=== PATIENT | female | born 1990 | race Caucasian/White ===

== ENCOUNTER 2017-09-10 00:24 | Inpatient (IN) | payer BC, OTHER ==
--- NOTE | 2017-09-10 01:17 | HP ---
General Information - General Information Maternal Age: 27 Grav: 2 Para: 1 SAB: 0 IEA: 0 Estimated Due Date: 09/15/17 Determined By: Early Ultrasound Gestational Age in Weeks and Days: 39 Weeks and 2 Days Maternal Blood Type and Rh: A Positive - Results this Serology/RPR Result: Non-Reactive Rubella Result: Immune HBsAg Result: Negative HIV Result: Negative GBS Culture Result: Negative Past Medical History Delivery History: Hx Uncomplicated Vaginal Delivery Pertinent Past Medical History: Non-Contributory Pertinent Past Surgical History: None Pertinent Family History: See Records Family History Comment: CVD, HTN - Antepartal Records Antepartal Records: Reviewed, Complicated by: - BMI 33, echogenic foci , tobacco use, R hydronephrosis (resolved 07/28/17) Review of Systems Constitutional: Uncomfortable CV Complaint: No Respiratory: Shortness of Breath: No Gastrointestinal: No Nausea/Vomiting Genitourinary: No Bleeding, No Leaking Fluid Musculoskeletal: Back Pain, Contractions Neurological: No Headache, No Visual Changes Movement: Normal Exam Allergies/Adverse Reactions: Allergies No Known Allergies Allergy (Verified 09/10/17 01:03) T:97.9, P:86, BP: 133/78, O2:98%, R:16 - Measurements Height: 5 ft 6 in Weight: 228 lb Weight in lbs: [id number] Body Mass Index (BMI): 36.8 Pre- Weight: 200 lb Weight Gained This : 28 lbs and 0 ozs - Exam Abdomen: No Upper Quadrant Pain Breast: Breast Exam Deferred CVA: No CVA Tenderness Extremities: No Edema Heart: Normal Rhythm/Heart Sounds HEENT: No Significant Findings Lungs: Clear Bilaterally Rectal: Rectal Exam Deferred Targeted Exam Findings Cervical Exam: 4cm Effacement: 80% Station: -1 Presenting Part: Vertex Membrane Status: Intact EFM Findings - External Monitor Findings Baseline Heart Rate: 135 External Monitor Findings: Accelerations Present, No Pattern of Variable or Late Decelerations, Variability Moderate, Baseline Stable Contractions: Regular, Moderate, 45-90 Seconds Contraction Frequency: 2-4 Assessment/Plan - Reason for Visit Reason for Visit: contractions - Obstetrical Risk Factors Obstetrical Risk Factors: Tobacco Use - Plan Plan: Active Labor
[2017-09-10 02:03] LABS: ABS Basophils 0.1 10^3/ul (0-0.2); ABS Eosinophils 0 10^3/ul (0-0.6); ABS Lymphocytes 2.4 10^3/ul (1.0-4.8); ABS Monocytes 0.8 10^3/ul (0-0.8); ABS Neutrophils 12.5 10^3/ul (1.5-7.7); ABS Nucleated RBC 0 10^3/ul; Eosinophil % 0.3 % (0-6); Hematocrit 36 % (35-47); Hemoglobin 12.3 g/dl (12.0-16.0); Lymphocyte % 15.2 % (25-47); Mean Corpuscular HGB Conc 34 g/dl (31-36); Mean Corpuscular Hemoglobin 30 pg (27-31); Mean Corpuscular Volume 88 fL (80-97); Mean Platelet Volume 10.2 um3 (7.4-10.4); Nucleated Red Blood Cells % 0.1; Platelet Count 200 10^3/ul (150-450); Red Blood Count 4.11 10^6/ul (4.00-5.40); Red Cell Distribution Width 14 % (10.5-15); White Blood Count 15.9 10^3/ul (3.5-10.8)
[2017-09-10] MEDS ORDERED: OBEPIDURAL* 250 ML EPIDURAL ONE (02:18)
[2017-09-10] MEDS ORDERED: Famotidine TAB* 20 MG PO PRN (02:32)
[2017-09-10] MEDS ORDERED: Sodium Citrate/Citric Acid* 15 ML UDC PO PRN (02:32)
[2017-09-10] MEDS ORDERED: Phenylephrine IV* 40 MCG/ML 10 ML SYRINGE IV PUSH PRN ×2 (02:32)
[2017-09-10] MEDS ORDERED: EPHEDrine (Pressors)* 50 MG/ML VIAL IV PUSH PRN ×2 (02:32)
[2017-09-10] MEDS ORDERED: OBEPIDURAL* 250 ML EPIDURAL SCH (03:00)
[2017-09-10] MEDS ORDERED: ceFOXitin 2 GM IVPREMIX* 2 GM/50 ML BAG ONE (04:52)
[2017-09-10] MEDS ORDERED: OXYTOCIN* 10 UNITS/ML 1 ML VIAL ONE ×2 (05:18→05:33)
[2017-09-10] MEDS ORDERED: Lidocaine 2% EPI 1:200000 MPF*10-20 ML VIAL ONE (05:18)
[2017-09-10] MEDS ORDERED: Phenylephrine IV* 40 MCG/ML 10 ML SYRINGE ONE (05:19)
[2017-09-10] MEDS ORDERED: Morphine PF AMP (0.5MG/ML)* 5 MG/10 ML AMP ONE (05:20)
[2017-09-10] MEDS ORDERED: Ondansetron INJ* 2 MG/ML VIAL IV PRN ×2 (05:24)
[2017-09-10] MEDS ORDERED: oxyCODONE TAB* 5 MG TAB PO PRN (05:24)
[2017-09-10] MEDS ORDERED: Nalbuphine* 10 MG/ML 1 ML VIAL IV PRN (05:24)
[2017-09-10] MEDS ORDERED: HYDROmorphone INJ* 0.5 MG/0.5 ML SYRINGE IV PRN (05:24)
[2017-09-10] MEDS ORDERED: Acetaminophen TAB* 325 MG PO PRN (05:24)
[2017-09-10] MEDS ORDERED: Naloxone* 0.4 MG/ML 1 ML VIAL IV PRN ×2 (05:24)
[2017-09-10] MEDS ORDERED: Ketorolac INJ* 30 MG/ML 1 ML VIAL IV PRN (05:24)
[2017-09-10] MEDS ORDERED: oxyCODONE/Acetamin 5/325 MG* TAB PO PRN ×3 (05:24→21:25)
[2017-09-10] MEDS ORDERED: diPHENhydraMINE IV* 50 MG/ML 1 ml VIAL (BENADRYL) IV PRN ×2 (05:24)
[2017-09-10] MEDS ORDERED: fentaNYL* 50 MCG/ML 2 ML VIAL (100 MCG VIAL) IV PRN (05:24)
[2017-09-10] MEDS ORDERED: DiMENhydriNATE IV* 50 MG/ML VIAL IV PUSH PRN (05:24)
[2017-09-10] MEDS ORDERED: Ondansetron ODT TAB* 4 MG ONE (05:34)
[2017-09-10] MEDS ORDERED: Glycerin ADULT SUPP PR PRN (05:54)
[2017-09-10] MEDS ORDERED: Witch Hazel PAD* JAR TOPICAL PRN (05:54)
[2017-09-10] MEDS ORDERED: Dibucaine 1% 28.35 GM TUBE PR PRN (05:54)
--- NOTE | 2017-09-10 06:00 | PN ---
Progress Note - Progress Note Date of Service: 09/10/17 - 2:12 SOAP: Subjective: [Pt reports increased pain and requests epidural. +FM, -LOF, + bloody show. Objective: [Cervix: /-1] Assessment: [27 y.o. , full term in Active labor] Plan: [1) Initiate IV and administer bolud of fluids 2) Dr Kirk called for epidural 3) Reviewed mgmt options for pain control. 4) Questions answered to pt satisfaction]
--- NOTE | 2017-09-10 06:17 | PN ---
Progress Note - Progress Note Date of Service: 09/10/17 - 4:00 SOAP: Subjective: [Pt comfortable with epidural. Reports possible SROM, and continued bloody show.] Objective: [BP: 116/99 Cervix: AL/90/-1 FHT: baseline 135bpm, +accels, reoccuring late variable decels into 60s with gradual return to baseline. ] Assessment: [27 y.o. cat 2 tracing Plan: [1) resuscitation with O2 initiated, bolus of fluids, and position changes with improvement of heart rate in hands knees position. 2) scalp electrode placed 3) Dr. Ferguson called at 3:43, no answer, Dr. Rosales called, report given and request for consult and evaluation. 4) Pt counseled on possibility of a C/S]
[2017-09-10] MEDS: Ibuprofen TAB* 600 MG PO PRN ×2 (09:06→16:35)
--- NOTE | 2017-09-10 12:25 | OP ---
DATE OF OPERATION: 09/10/17 - ROOM #105 DATE OF : 89 SURGEON: Olimpia Rosales MD TELEPHONE SERVICE REPRESENTATIVE: Bonnie Mistry, nurse-warehouse associate. ANESTHESIOLOGIST: Dr. Kirk. ANESTHESIA: Epidural. RIBBON HANKING MACHINE OPERATOR: Dr. Murphy. PRE-OP DIAGNOSIS: Category II heart tracing remote from delivery, intrauterine , 39+ weeks. POST-OP DIAGNOSIS: Category II heart tracing remote from delivery, intrauterine , 39+ weeks, delivered. OPERATIVE PROCEDURE: Primary low-transverse section. IV FLUIDS: 3500 cc of crystalloid. URINE OUTPUT: 400 cc of concentrated yellow urine. ESTIMATED BLOOD LOSS: 600 cc. FINDINGS: Revealed a vertex male infant, direct OP. No nuchal cord. No meconium. Apgars were 8 at 1 minute and 9 at 5 minutes. Normally palpated tubes and ovaries. Uterine cavity normally palpated without evidence of retained membranes or placental tissue. Placenta appeared normal, was manually extracted posterior implantation, and three- vessel cord. COMPLICATIONS: None apparent. DISPOSITION: Stable to recovery room. DESCRIPTION OF PROCEDURE: The patient was placed in dorsal lithotomy position after undergoing dosing of epidural, prep of abdomen and drape of abdomen. The patient was identified with the universal protocol for correct procedure, patient, and position. Incision was made two fingerbreadths above the pubic symphysis. This was carried down through the fascia. Fascia was scored in the midline with the scalpel and extended laterally and superiorly using curved Snyder scissors. Fascia was with blunt and sharp dissection superiorly and inferiorly and the peritoneum was then entered bluntly. Peritoneal incision was extended bluntly. The bladder blade was inserted. Lower uterine segment was identified and tented with Allis. Incision was made with scalpel and this was carried down through to membranes bluntly and the incision was extended bluntly laterally and superiorly. The infant was found to be wedged direct OP. Head was delivered, anterior- posterior shoulder delivered, baby was vigorous and crying upon delivery. The cord was allowed to pulse for 60 seconds and then clamped and then cut. The was handed off to awaiting fire systems inspector. Appropriate cord blood was obtained. Placenta was then manually extracted, noted to be intact, and had a posterior insert. The uterine was then explored and noted to be free of any membranes or placental tissue. The incision was first clamped with broad Allis and the incision was reapproximated with first layer running locked x2, second layer running imbricated x1. The ovaries were palpated. Adnexa were palpated. No masses were appreciated. Copious lavage was performed. Prior to closure of the peritoneum, all sponge, instrument, and blade counts were correct. Peritoneum was reapproximated using 3-0 Vicryl x2 in a running fashion. Prefascial area was lavaged, hemostasis was assured, and the fascia itself was reapproximated using 0 Vicryl x2. Subcu was lavaged. Hemostasis was assured with Bovie coagulation and the subcutaneous fat layer was reapproximated using 0 Vicryl in an interrupted fashion. The skin was then reapproximated using 4-0 Monocryl in a subcuticular fashion. Mastisol and Steris were applied. All sponge, needle, instrument, and blade counts were correct throughout the case. The patient tolerated the procedure well and went to recovery room in stable condition. [id number]/[facility] #: [id number] [place]
[2017-09-10] MEDS ORDERED: Ketorolac INJ* 30 MG/ML 1 ML VIAL IV PUSH PRN (15:41)
[2017-09-10] MEDS: Simethicone TAB* 80 MG TAB.CHEW PO SCH ×2 (18:36→22:05)
[2017-09-10] MEDS ORDERED: Zolpidem TAB* 5 MG PO PRN (21:25)
[2017-09-10] MEDS: Docusate CAP* 100 MG PO SCH (22:05)
[2017-09-11] MEDS: Ibuprofen TAB* 600 MG PO PRN ×3 (05:47→19:34)
[2017-09-11 07:00] LABS: ABS Basophils 0.1 10^3/ul (0-0.2); ABS Eosinophils 0.1 10^3/ul (0-0.6); ABS Lymphocytes 2.2 10^3/ul (1.0-4.8); ABS Neutrophils 11.4 10^3/ul (1.5-7.7); ABS Nucleated RBC 0 10^3/ul; Eosinophil % 0.5 % (0-6); Hematocrit 30 % (35-47); Hemoglobin 10.3 g/dl (12.0-16.0); Lymphocyte % 14.7 % (25-47); Mean Corpuscular HGB Conc 34 g/dl (31-36); Mean Corpuscular Hemoglobin 30 pg (27-31); Mean Corpuscular Volume 87 fL (80-97); Mean Platelet Volume 9.5 um3 (7.4-10.4); Nucleated Red Blood Cells % 0; Platelet Count 163 10^3/ul (150-450); Red Blood Count 3.46 10^6/ul (4.00-5.40); Red Cell Distribution Width 14 % (10.5-15); White Blood Count 14.7 10^3/ul (3.5-10.8)
[2017-09-11] MEDS ORDERED: Ferrous Gluconate TAB* 324 MG TAB PO SCH (09:00)
[2017-09-11] MEDS: Simethicone TAB* 80 MG TAB.CHEW PO SCH ×3 (09:32→20:34)
[2017-09-11] MEDS: Acetaminophen TAB* 325 MG PO PRN ×3 (09:32→19:34)
[2017-09-11] MEDS: Docusate CAP* 100 MG PO SCH ×3 (09:32→20:34)
[2017-09-12] MEDS: Acetaminophen TAB* 325 MG PO PRN ×3 (00:18→09:25)
[2017-09-12] MEDS: Ibuprofen TAB* 600 MG PO PRN (05:34)
[2017-09-12] MEDS: Docusate CAP* 100 MG PO SCH (09:25)
[2017-09-12] MEDS: Simethicone TAB* 80 MG TAB.CHEW PO SCH (09:25)
[2017-09-12 11:11] VITALS: BP 115/65
== END 2017-09-12 12:30 | disposition home or self-care (01) | DRG 540 ==
LOC: MCHOBOUT 00:24 → MCHOB 01:01
PROVIDERS: ADMIT Midwife; ATTEND Obstetrics & Gynecology
PROC: 10907ZC Drainage of Amniotic Fluid, Therapeutic from Products of Conception, Via Natural or Artificial Opening (ICD-10-PCS; 2017-09-10)
PROC: 10D00Z1 Extraction of Products of Conception, Low, Open Approach (ICD-10-PCS; principal; 2017-09-10 04:43)
DX: O76 Abnormality in fetal heart rate and rhythm complicating labor and delivery (principal); O99.334 Smoking (tobacco) complicating childbirth; F17.210 Nicotine dependence, cigarettes, uncomplicated; O99.214 Obesity complicating childbirth; E66.9 Obesity, unspecified; Z68.33 Body mass index [BMI] 33.0-33.9, adult; O32.8XX0 Maternal care for other malpresentation of fetus, not applicable or unspecified; Z3A.39 39 weeks gestation of pregnancy; Z37.0 Single live birth
CPT/HCPCS: 36415; 85025; 86850; 86900; 86901; A9270-GY; J0694; J1885; J2405; J2590

== ENCOUNTER 2018-03-09 17:44 | Emergency (ER) | payer OTHER ==
[2018-03-09 18:07] VITALS: BP 131/81
--- NOTE | 2018-03-09 19:19 | UC ---
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, family members with uri/viral illness no one dx with flu---denies fever - History of Current Complaint Chief Complaint: UCGeneralIllness Stated Complaint: SORE THROAT Time Seen by Provider: 03/09/18 19:02 Hx Obtained From: Patient Hx Last Menstrual Period: [id number] ?: No Onset/Duration: Sudden Onset, Lasting Days - 2, Still Present Pain Intensity: 7 Pain Scale Used: 0-10 Numeric Cough: None Associated Signs & Symptoms: Positive: Negative - Allergies/Home Medications Allergies/Adverse Reactions: Allergies Allergy/AdvReac Type Severity Reaction Status Date / Time No Known Allergies Allergy Verified 03/09/18 18:07 Home Medications: Home Medications Desogestrel-Ethinyl Estradiol [Velivet 28 Day Tablet] 1 tab PO DAILY 03/09/18 [ History Confirmed 03/09/18] PMH/Surg Hx/FS Hx/Imm Hx Previously Healthy: Yes - Surgical History Surgical History: None - Family History Known Family History: Positive: None - Social History Occupation: Employed Full-time Lives: With Family Alcohol Use: None Substance Use Type: None Smoking Status (MU): Current Some Day Smoker Type: Cigarettes Amount Used/How Often: 10 cig./day Have You Smoked in the Last Year: Yes Cessation Counseling: Counseled 3+Min - 10 Min - Immunization History Most Recent Influenza Vaccination: 12/2104 Most Recent Tetanus Shot: unknown Most Recent Pneumonia Vaccination: never Review of Systems All Other Systems Reviewed And Are Negative: Yes Constitutional: Positive: Chills, Fatigue Skin: Positive: Negative Eyes: Positive: Negative ENT: Positive: Sore Throat, Sinus Congestion Respiratory: Positive: Cough Cardiovascular: Positive: Negative Gastrointestinal: Positive: Negative Genitourinary: Positive: Negative Motor: Positive: Negative Neurovascular: Positive: Negative Musculoskeletal: Positive: Myalgia Neurological: Positive: Negative Psychological: Positive: Negative Is Patient Immunocompromised?: No Physical Exam Triage Information Reviewed: Yes Appearance: Well-Nourished, Ill-Appearing - mild, Pain Distress Vital Signs: Initial Vital Signs Temp 98.5 F 03/09/18 18:02 Pulse 92 03/09/18 18:02 Resp 19 03/09/18 18:02 BP 131/81 03/09/18 18:02 Pulse Ox 99 03/09/18 18:02 Vital Signs Reviewed: Yes Eye Exam: Normal Eyes: Positive: Conjunctiva Clear ENT Exam: Normal ENT: Positive: Normal ENT inspection, Hearing grossly normal, Pharynx normal, TMs normal, Uvula midline. Negative: Nasal congestion, Tonsillar swelling, Trismus, Muffled voice, Hoarse voice, Dental tenderness, Sinus tenderness Dental Exam: Normal Neck exam: Normal Neck: Positive: Supple, Nontender, No Lymphadenopathy Respiratory Exam: Normal Respiratory: Positive: Chest non-tender, Lungs clear, Normal breath sounds, No respiratory distress, No accessory muscle use Cardiovascular Exam: Normal Cardiovascular: Positive: RRR, No Murmur, Pulses Normal, Brisk Capillary Refill Musculoskeletal Exam: Normal Musculoskeletal: Positive: Strength Intact, ROM Intact, No Edema Neurological Exam: Normal Neurological: Positive: Alert, Muscle Tone Normal Psychological Exam: Normal Skin Exam: Normal Diagnostics - Laboratory Diagnostic Studies Completed/Ordered: RST and Influenmza A/B (-) Throat Pain/Nasal Course/Dx - Course Assessment/Plan: rest increase fluids, tylenol, ibuprofen follow with pcp prn - Differential Dx/Diagnosis Provider Diagnosis: Viral illness Discharge - Sign-Out/Discharge Documenting (check all that apply): Patient Departure All imaging exams completed and their final reports reviewed: No Studies - Discharge Plan Condition: Stable Disposition: HOME Patient Education Materials: Upper Respiratory Infection (DC), Viral Syndrome ( ED) Forms: *Work Release Referrals: [facility] [Outside] - If Needed - Billing Disposition and Condition Condition: STABLE Disposition: Home
== END 2018-03-09 19:53 | disposition home or self-care (01) ==
LOC: UCEAST 17:44
DX: B34.9 Viral infection, unspecified (principal); R53.83 Other fatigue; R11.0 Nausea; R19.7 Diarrhea, unspecified; J02.9 Acute pharyngitis, unspecified; F17.210 Nicotine dependence, cigarettes, uncomplicated
CPT/HCPCS: 87651; 99212; G0463

== ENCOUNTER 2018-08-07 19:57 | Emergency (ER) | payer SELFPAY ==
[2018-08-07 20:07] VITALS: BP 141/71
--- NOTE | 2018-08-07 20:20 | UC ---
Throat Pain/Nasal Hu HPI - HPI Summary HPI Summary: awoke up this morning this am with sore throat and body aches---got yesterday - History of Current Complaint Chief Complaint: UCRespiratory Stated Complaint: SORE THROAT Time Seen by Provider: 08/07/18 19:58 Hx Obtained From: Patient Hx Last Menstrual Period: 2.5 WEEKS AGO ?: No Onset/Duration: Sudden Onset, Lasting Days - 1 Pain Intensity: 7 Pain Scale Used: 0-10 Numeric Cough: None - Allergies/Home Medications Allergies/Adverse Reactions: Allergies Allergy/AdvReac Type Severity Reaction Status Date / Time No Known Allergies Allergy Verified 08/07/18 20:07 Home Medications: Home Medications Dextromethorphan/Benzocaine [Cepacol Sorethroat-Cough Ab] 1 each PO PRN [History] PMH/Surg Hx/FS Hx/Imm Hx Previously Healthy: Yes - Surgical History Surgical History: None - Family History Known Family History: Positive: None - Social History Occupation: Employed Full-time Lives: With Family Alcohol Use: Occasionally Substance Use Type: None Smoking Status (MU): Current Every Day Smoker Type: Cigarettes Amount Used/How Often: <1/2 PPD Have You Smoked in the Last Year: Yes - Immunization History Most Recent Influenza Vaccination: 12/2104 Most Recent Tetanus Shot: unknown Most Recent Pneumonia Vaccination: never Review of Systems All Other Systems Reviewed And Are Negative: Yes Constitutional: Positive: Chills, Fatigue Skin: Positive: Negative Eyes: Positive: Negative ENT: Positive: Sore Throat, Ear Ache Respiratory: Positive: Negative Cardiovascular: Positive: Negative Gastrointestinal: Positive: Negative Genitourinary: Positive: Negative Motor: Positive: Negative Neurovascular: Positive: Negative Musculoskeletal: Positive: Negative Neurological: Positive: Negative Psychological: Positive: Negative Is Patient Immunocompromised?: No Physical Exam Triage Information Reviewed: Yes Appearance: Well-Appearing, No Pain Distress, Well-Nourished Vital Signs: Initial Vital Signs Temp 97.7 F 08/07/18 20:04 Pulse 97 08/07/18 20:04 Resp 16 08/07/18 20:04 BP 141/71 08/07/18 20:04 Pulse Ox 99 08/07/18 20:04 Vital Signs Reviewed: Yes Eye Exam: Normal Eyes: Positive: Conjunctiva Clear ENT Exam: Normal ENT: Positive: Normal ENT inspection, Hearing grossly normal, Pharynx normal, TMs normal, Uvula midline. Negative: Nasal congestion, Tonsillar swelling, Tonsillar exudate, Trismus, Muffled voice, Hoarse voice, Dental tenderness, Sinus tenderness Neck exam: Normal Neck: Positive: Supple, Nontender, No Lymphadenopathy Respiratory Exam: Normal Respiratory: Positive: Chest non-tender, Lungs clear, Normal breath sounds, No respiratory distress, No accessory muscle use Cardiovascular Exam: Normal Cardiovascular: Positive: RRR, No Murmur, Pulses Normal, Brisk Capillary Refill Musculoskeletal Exam: Normal Musculoskeletal: Positive: Strength Intact, ROM Intact, No Edema Neurological Exam: Normal Neurological: Positive: Alert, Muscle Tone Normal Psychological Exam: Normal Skin Exam: Normal Diagnostics - Laboratory Lab Results: rst (-) Throat Pain/Nasal Course/Dx - Course Course Of Treatment: increase fluids, tylenol, ibuprofen OTC treatments for comfort follow with [facility] if needed - Differential Dx/Diagnosis Provider Diagnosis: Pharyngitis with viral syndrome, Hypertension, Nicotine abuse Discharge - Sign-Out/Discharge Documenting (check all that apply): Patient Departure All imaging exams completed and their final reports reviewed: No Studies - Discharge Plan Condition: Stable Disposition: HOME Patient Education Materials: Pharyngitis (ED), Viral Syndrome (ED) Referrals: [facility] [Outside] - If Needed - Billing Disposition and Condition Condition: STABLE Disposition: Home
== END 2018-08-07 20:25 | disposition home or self-care (01) ==
LOC: UCEAST 19:57
DX: J02.9 Acute pharyngitis, unspecified (principal); B34.9 Viral infection, unspecified; I10 Essential (primary) hypertension; F17.210 Nicotine dependence, cigarettes, uncomplicated
CPT/HCPCS: 87651; 99211; G0463

== ENCOUNTER 2019-09-25 15:52 | Inpatient (IN) ==
[2019-09-25] MEDS ORDERED: Lactated Ringers 1000 ml BAG 1,000 ML IV ONE (16:25)
[2019-09-25 16:55] LABS: ABS Basophils 0.1 10^3/ul (0-0.2); ABS Eosinophils 0.1 10^3/ul (0-0.6); ABS Lymphocytes 2.8 10^3/ul (1.0-4.8); ABS Monocytes 0.5 10^3/ul (0-0.8); Eosinophil % 0.4 %; Hematocrit 36 % (35-47); Hemoglobin 12.1 g/dL (12.0-16.0); Lymphocyte % 20.3 %; Mean Corpuscular HGB Conc 34 g/dL (31-36); Mean Corpuscular Hemoglobin 30 pg (27-31); Mean Corpuscular Volume 89 fL (80-97); Nucleated Red Blood Cells % 0.1; Platelet Count 192 10^3/uL (150-450); Red Blood Count 4.07 10^6 /uL (3.70-4.87); Red Cell Distribution Width 14 % (10-15); White Blood Count 13.6 10^3/uL (3.5-10.8)
[2019-09-25] MEDS ORDERED: Lactated Ringers 1000 ml BAG 1,000 ML IV SCH ×2 (17:00→23:45)
[2019-09-25] MEDS ORDERED: OBEPIDURAL 250 ML EPIDURAL ONE (17:23)
[2019-09-25 17:50] LABS: ALT 12 U/L (7-52); Albumin 3.6 g/dL (3.2-5.2); Albumin/Globulin Ratio 1.2 (1-3); Alkaline Phosphatase 135 U/L (34-104); BUN/Creatinine Ratio 18.2 (8-20); Blood Urea Nitrogen 10 mg/dL (6-24); CO2 Carbon Dioxide 18 mmol/L (22-32); Chloride 106 mmol/L (101-111); EGFR African American 158.1 (>60); EGFR Non-African American 130.7 (>60); Globulin 3.1 g/dL (2-4); Glucose 100 mg/dL (70-100); Sodium 135 mmol/L (135-145); Total Protein 6.7 g/dL (6.4-8.9); Uric Acid 4.9 mg/dL (2.3-6.6)
[2019-09-25 17:53] LABS: Anion Gap 11 mmol/L (2-11); Urine Benzodiazepine Screen None Detected (None Detect); Urine Opiates Screen None Detected (None Detect)
[2019-09-25] MEDS ORDERED: Oxytocin in LR 20 UNITS/1,000 ML BAG IVPB ONE (23:29)
[2019-09-25] MEDS ORDERED: Glycerin ADULT 2.4 gm SUPP PR PRN (23:38)
[2019-09-25] MEDS ORDERED: Dibucaine 1% OINT 28.35 GM TUBE PR PRN (23:38)
[2019-09-25] MEDS ORDERED: Witch Hazel PAD JAR TOPICAL PRN (23:38)
[2019-09-26 08:01] LABS: ABS Lymphocytes 2.9 10^3/ul (1.0-4.8); ABS Monocytes 0.9 10^3/ul (0-0.8); Eosinophil % 0.2 %; Hematocrit 34 % (35-47); Hemoglobin 11.7 g/dL (12.0-16.0); Lymphocyte % 18.7 %; Mean Corpuscular HGB Conc 35 g/dL (31-36); Mean Corpuscular Hemoglobin 31 pg (27-31); Mean Corpuscular Volume 88 fL (80-97); Mean Platelet Volume 9.7 fL (7.4-10.4); Platelet Count 171 10^3/uL (150-450); Red Blood Count 3.82 10^6 /uL (3.70-4.87); Red Cell Distribution Width 14 % (10-15); White Blood Count 15.3 10^3/uL (3.5-10.8)
[2019-09-27 07:37] VITALS: BP 116/62
== END 2019-09-27 11:52 | disposition home or self-care (01) | DRG 560 ==
LOC: MCHOBOUT 15:52 → MCHOB 16:53
PROVIDERS: ADMIT Obstetrics & Gynecology; ATTEND Obstetrics & Gynecology